=== PATIENT | female | born 1990 | race Caucasian/White ===

== ENCOUNTER 2016-10-12 14:33 | Emergency (ER) | payer BC, OTHER ==
[2016-10-12] MEDS ORDERED: ONDANSETRON 4 MG/2 ML VIAL IVP ONE (15:11)
[2016-10-12] MEDS ORDERED: KETOROLAC 30 MG/1 ML SDV IVP ONE (15:11)
[2016-10-12] MEDS ORDERED: NS 1,000 ML IV ONE (15:11)
[2016-10-12] MEDS ORDERED: HYOSCYAMINE SULFATE 0.125 MG TAB PO ONE ×2 (15:12→15:46)
[2016-10-12 15:16] LABS: % IMMATURE GRANULYOCYTES 0.3 % (0.0-1.1); ABSOLUTE IMMATURE GRANULOCYTES 0.03 10^3/uL (0.00-0.10); ADD DIFF? NO; ADD MORPH? NO; ADD SCAN? NO; ATYPICAL LYMPHOCYTE FLAG 60 (0-99); FRAGMENT RBC FLAG 0 (0-99); HEMATOCRIT 42.5 % (38.0-47.0); HEMOGLOBIN 14.7 g/dL (12.6-16.3); LEFT SHIFT FLG 60 (0-99); LIPEMIA HEMOLYSIS FLAG 90 (0-99); MEAN CELL HEMOGLOBIN 30.2 pg (27.9-34.1); MEAN CELL HEMOGLOBIN CONCENTR. 34.6 g/dL (32.4-36.7); MEAN CELL VOLUME 87.3 fL (81.5-99.8); MEAN PLATELET VOLUME 10.3 fL (8.7-11.7); PLATELET CLUMPS FLAG 10 (0-99); PLATELET COUNT 279 10^3/uL (150-400); RED BLOOD CELL COUNT 4.87 10^6/uL (4.18-5.33); RED CELL DISTRIBUTION WIDTH 12.6 % (11.5-15.2)
[2016-10-12 15:24] LABS: ALANINE AMINOTRANSFERASE 24 IU/L (9-52); ALKALINE PHOSPHATASE 66 IU/L (38-126); ANION GAP 17 mEq/L (8-16); ASPARTATE AMINOTRANSFERASE 20 IU/L (14-46); BILIRUBIN,TOTAL 0.4 mg/dL (0.1-1.4); CALCIUM 9.4 mg/dL (8.5-10.4); CARBON DIOXIDE 22 mEq/l (22-31); CHLORIDE 99 mEq/L (97-110); CREATININE 0.8 mg/dL (0.6-1.0); GLOMERULAR FILTRATION RATE > 60; GLUCOSE 109 mg/dL (70-100); POTASSIUM 3.3 mEq/L (3.5-5.2); SODIUM 138 mEq/L (134-144); TOTAL PROTEIN 7.3 g/dL (6.3-8.2)
--- NOTE | 2016-10-12 15:39 | UCPHY ---
H & P Patient Type: New Chief Complaint Nursing Narrative: nausea, abd pain upper, fever, 2 days Time Seen by Provider: 10/12/16 14:59 HPI/ROS: Patient complains of crampy generalized abdominal pain and diarrhea. Her symptoms started 2 days prior to arrival and she describes concurrent onset of periumbilical cramping that ranges from mild intensity to 7/10, is usually dull in nature but occasionally sharp and diarrhea that is described as loose and watery without to 15 episodes a day. She has nausea and anorexia as well but no vomiting. Her last meal was a piece chicken last night. She is to still tolerating some p.o. fluids today. She notes no exacerbating factors for her cramping discomfort. She did have partial relief from advanced trauma on antiemetic this morning-ODT the family had a home ROS: No high fevers. She does describe onset of low-grade fevers today. She also complains of generalized muscle cramping. No other constitutional symptoms. HEENT: No recent URI symptoms. She does have a bandlike headache of mild intensity currently 4/10 similar to prior headaches. This does not feel migraine this to her. Pulmonary: No cough cardiovascular: No heart with palpitations or lightheadedness. GI: No bloody stools. : No urinary symptoms. Last menstrual period is irregular due to IUD. 10 point ROS is otherwise negative. Source: Patient Exam Limitations: No limitations - Personal History LMP (Females 10-55): Over 28 Days Ago - Medical/Surgical History Hx Asthma: Yes Hx Chronic Respiratory Disease: No Hx Diabetes: No Hx Cardiac Disease: No Hx Renal Disease: No Hx Cirrhosis: No Hx Alcoholism: No Hx HIV/AIDS: No Hx Splenectomy or Spleen Trauma: No Other PMH: chronic migranes, tonsillectomy - Family History Significant Family History: No pertinent family hx - Social History Smoking Status: Never smoked Constitutional: Initial Vital Signs Temperature (C) 37.8 C 10/12/16 14:39 Heart Rate 91 10/12/16 14:39 Respiratory Rate 14 10/12/16 14:39 Blood Pressure 113/76 10/12/16 14:39 O2 Sat (%) 97 10/12/16 14:39 O2 Delivery Mode Room Air Allergies/Adverse Reactions: azithromycin [From Zithromax] Allergy (Verified 07/04/13 19:11) Home Medications: Medication Instructions Recorded Advair 07/04/13 Control 07/04/13 HYOSCYAMINE SULFATE [LEVSIN-SL] 0.125 - 0.25 mg SL Q6 PRN #20 10/12/16 tab.subl Ondansetron Odt [Zofran Odt] 4 - 8 mg PO Q4PRN PRN #4 tab 10/12/16 Medical Decision Making ED Course/Re-evaluation: IV normal saline bolus Zofran IV with resolution of nausea Toradol IV and Levsin sublingual with relief of abdominal cramping I counseled the patient regarding viral gastroenteritis which I think is the cause of her symptoms. we Ruled out with a negative HCG here. - Data Points Laboratory Results: Laboratory Results 10/12/16 14:55 10/12/16 14:55 10/12/16 10/12/16 10/12/16 16:00 14:55 14:55 WBC RBC Hgb Hct MCV MCH MCHC RDW Plt Count MPV Neut % (Auto) Lymph % (Auto) [place] % (Auto) Eos % (Auto) Baso % (Auto) Nucleat RBC Rel Count Absolute Neuts (auto) Absolute Lymphs (auto) Absolute Monos (auto) Absolute Eos (auto) Absolute Basos (auto) Absolute Nucleated RBC Immature Gran % Immature Gran # Sodium 138 mEq/L mEq/L (134-144) Potassium 3.3 mEq/L L mEq/L (3.5-5.2) Chloride 99 mEq/L mEq/L (97-110) Carbon Dioxide 22 mEq/l mEq/l (22-31) Anion Gap 17 mEq/L H mEq/L (8-16) BUN 4 mg/dL L mg/dL (7-23) Creatinine 0.8 mg/dL mg/dL (0.6-1.0) Estimated GFR > 60 Glucose 109 mg/dL H mg/dL (70-100) Calcium 9.4 mg/dL mg/dL (8.5-10.4) Total Bilirubin 0.4 mg/dL mg/dL (0.1-1.4) AST 20 IU/L IU/L (14-46) ALT 24 IU/L IU/L (9-52) Alkaline Phosphatase 66 IU/L IU/L (38-126) Total Protein 7.3 g/dL g/dL (6.3-8.2) Albumin 4.0 g/dL g/dL (3.5-5.0) Lipase 45.0 IU/L IU/L (23-300) Beta HCG, Qual NEGATIVE Urine Color YELLOW Urine Appearance CLEAR Urine pH 5.5 (5.0-7.5) Ur Specific [place] 1.010 (1.002-1.030) Urine Protein NEGATIVE (NEGATIVE) Urine Ketones NEGATIVE (NEGATIVE) Urine Blood NEGATIVE (NEGATIVE) Urine Nitrate NEGATIVE (NEGATIVE) Urine Bilirubin NEGATIVE (NEGATIVE) Urine Urobilinogen 0.2 EU EU (0.2-1.0) Ur Leukocyte Esterase NEGATIVE (NEGATIVE) Ur Culture Indicated? NOT INDICATED (NI) Urine Glucose NEGATIVE (NEGATIVE) 10/12/16 14:55 WBC 9.99 10^3/uL H 10^3/uL (3.80-9.50) RBC 4.87 10^6/uL 10^6/uL (4.18-5.33) Hgb 14.7 g/dL g/dL (12.6-16.3) Hct 42.5 % % (38.0-47.0) MCV 87.3 fL fL (81.5-99.8) MCH 30.2 pg pg (27.9-34.1) MCHC 34.6 g/dL g/dL (32.4-36.7) RDW 12.6 % % (11.5-15.2) Plt Count 279 10^3/uL 10^3/uL (150-400) MPV 10.3 fL fL (8.7-11.7) Neut % (Auto) 77.5 % H % (39.3-74.2) Lymph % (Auto) 14.3 % L % (15.0-45.0) [place]ane % (Auto) 7.3 % % (4.5-13.0) Eos % (Auto) 0.3 % L % (0.6-7.6) Baso % (Auto) 0.3 % % (0.3-1.7) Nucleat RBC Rel Count 0.0 % % (0.0-0.2) Absolute Neuts (auto) 7.74 10^3/uL H 10^3/uL (1.70-6.50) Absolute Lymphs (auto) 1.43 10^3/uL 10^3/uL (1.00-3.00) Absolute Monos (auto) 0.73 10^3/uL 10^3/uL (0.30-0.80) Absolute Eos (auto) 0.03 10^3/uL 10^3/uL (0.03-0.40) Absolute Basos (auto) 0.03 10^3/uL 10^3/uL (0.02-0.10) Absolute Nucleated RBC 0.00 10^3/uL 10^3/uL (0-0.01) Immature Gran % 0.3 % % (0.0-1.1) Immature Gran # 0.03 10^3/uL 10^3/uL (0.00-0.10) Sodium Potassium Chloride Carbon Dioxide Anion Gap BUN Creatinine Estimated GFR Glucose Calcium Total Bilirubin AST ALT Alkaline Phosphatase Total Protein Albumin Lipase Beta HCG, Qual Urine Color Urine Appearance Urine pH Ur Specific [place] Urine Protein Urine Ketones Urine Blood Urine Nitrate Urine Bilirubin Urine Urobilinogen Ur Leukocyte Esterase Ur Culture Indicated? Urine Glucose Medications Given: Discontinued Medications Acetaminophen (Tylenol) 975 mg PO EDNOW ONE Stop: 10/12/16 15:47 Last Admin: 10/12/16 15:50 Dose: 975 mg Hyoscyamine Sulfate (Levsin, Hyomax-Sl) 0.125 mg PO EDNOW ONE Stop: 10/12/16 15:13 Last Admin: 10/12/16 15:20 Dose: 0.125 mg Hyoscyamine Sulfate (Levsin, Hyomax-Sl) 0.125 mg PO EDNOW ONE Stop: 10/12/16 15:47 Last Admin: 10/12/16 15:50 Dose: 0.125 mg Sodium Chloride (Ns) 1,000 mls @ 0 mls/hr IV ONCE ONE PRN Reason: Wide Open Stop: 10/12/16 15:12 Last Admin: 10/12/16 15:20 Dose: 1,000 mls Ketorolac Tromethamine (Toradol) 15 mg IVP EDNOW ONE Stop: 10/12/16 15:12 Last Admin: 10/12/16 15:20 Dose: 15 mg Ketorolac Tromethamine (Toradol) 15 mg IVP EDNOW ONE Stop: 10/12/16 15:47 Last Admin: 10/12/16 15:50 Dose: 15 mg Ondansetron HCl (Zofran) 4 mg IVP EDNOW ONE Stop: 10/12/16 15:12 Last Admin: 10/12/16 15:20 Dose: 4 mg Departure - Departure Disposition: Home, Routine, Self-Care Clinical Impression: Viral gastroenteritis, Dehydration Headache Qualifiers: Headache type: tension-type Headache chronicity pattern: acute headache Intractability: not intractable Qualified Code(s): G44.209 - Tension-type headache, unspecified, not intractable Condition: Good Instructions: Tension Headache (ED), Gastroenteritis (ED) Additional Instructions: Diagnoses: 1. Viral gastroenteritis 2. Dehydration 3. Headache Plan: Drink plenty fluids Light diet to feel improved Zofran for nausea if needed Imodium for diarrhea if needed Levsin for cramping if needed. Tylenol for discomfort in addition if needed. Your symptoms should improve over the next 1-3 days. Return for any significant worsening despite the treatment plan Referrals: Zac Castillo [Primary Care Provider] - As per Instructions Stand Alone Forms: Work Excuse Prescriptions: HYOSCYAMINE SULFATE [LEVSIN-SL] 0.125 - 0.25 mg SL Q6 PRN #20 tab.subl PRN Reason: abd. cramping Ondansetron Odt [Zofran Odt] 4 - 8 mg PO Q4PRN PRN #4 tab PRN Reason: Vomiting - PQRS PQRS Measurement: NA
[2016-10-12] MEDS ORDERED: KETOROLAC 15 MG/1 ML SDV IVP ONE (15:46)
[2016-10-12] MEDS ORDERED: ACETAMINOPHEN 325 MG TAB PO ONE (15:46)
[2016-10-12 16:06] LABS: COLOR YELLOW; LEUKOCYTE ESTERASE,URINE NEGATIVE (NEGATIVE); NITRITE,URINE NEGATIVE (NEGATIVE); PH,URINE 5.5 (5.0-7.5)
[2016-10-12 16:37] VITALS: BP 101/72; PULSE 77; RESP 16; TEMP 99.3; O2SAT 95
== END 2016-10-12 16:25 | disposition home or self-care (01) ==
LOC: CED 14:33
DX: A08.4 Viral intestinal infection, unspecified (principal); E86.0 Dehydration; G44.209 Tension-type headache, unspecified, not intractable
CPT/HCPCS: 80053-PO; 81003-PO; 83690-PO; 84703-PO; 85025-PO; 96361-PO; 96374-PO; 96375-PO; 99205-PO; G0463-PO; J1885; J2405

== ENCOUNTER 2016-10-14 11:16 | Emergency (ER) | payer OTHER ==
[2016-10-14] MEDS ORDERED: NS 1,000 ML IV ONE (11:33)
[2016-10-14] MEDS ORDERED: ONDANSETRON 4 MG/2 ML VIAL IVP ONE ×2 (11:34→15:07)
[2016-10-14 11:44] LABS: % IMMATURE GRANULYOCYTES 0.2 % (0.0-1.1); ABSOLUTE IMMATURE GRANULOCYTES 0.02 10^3/uL (0.00-0.10); ADD DIFF? NO; ADD MORPH? NO; ADD SCAN? YES; FRAGMENT RBC FLAG 0 (0-99); HEMATOCRIT 43.5 % (38.0-47.0); HEMOGLOBIN 14.7 g/dL (12.6-16.3); LEFT SHIFT FLG 10 (0-99); LIPEMIA HEMOLYSIS FLAG 90 (0-99); MEAN CELL HEMOGLOBIN 29.6 pg (27.9-34.1); MEAN CELL HEMOGLOBIN CONCENTR. 33.8 g/dL (32.4-36.7); MEAN CELL VOLUME 87.5 fL (81.5-99.8); PLATELET CLUMPS FLAG 0 (0-99); PLATELET COUNT 326 10^3/uL (150-400); RED BLOOD CELL COUNT 4.97 10^6/uL (4.18-5.33); RED CELL DISTRIBUTION WIDTH 12.4 % (11.5-15.2)
[2016-10-14 11:47] LABS: ATYPICAL LYMPHOCYTE FLAG 130 (0-99)
[2016-10-14 11:50] LABS: COLOR YELLOW; LEUKOCYTE ESTERASE,URINE NEGATIVE (NEGATIVE); NITRITE,URINE NEGATIVE (NEGATIVE)
[2016-10-14 11:59] LABS: ANION GAP 18 mEq/L (8-16); CALCIUM 9.5 mg/dL (8.5-10.4); CARBON DIOXIDE 23 mEq/l (22-31); CHLORIDE 102 mEq/L (97-110); CREATININE 0.7 mg/dL (0.6-1.0); GLOMERULAR FILTRATION RATE > 60; GLUCOSE 87 mg/dL (70-100); SODIUM 143 mEq/L (134-144)
[2016-10-14 12:07] LABS: SCAN NEGATIVE
[2016-10-14] MEDS ORDERED: fentaNYL 100 MCG/2 ML INJ IVP ONE (13:14)
[2016-10-14 13:27] LABS: ALBUMIN 3.9 g/dL (3.5-5.0); BILIRUBIN,TOTAL 0.3 mg/dL (0.1-1.4); BILIRUBIN-CONJUGATED 0.2 mg/dL (0.0-0.5); BILIRUBIN-UNCONJUGATED 0.1 mg/dL (0.0-1.1); TOTAL PROTEIN 7.1 g/dL (6.3-8.2)
[2016-10-14] MEDS ORDERED: IOPAMIDOL (ISOVUE-300) 100 ML BTL IV ONE (13:32)
[2016-10-14] MEDS ORDERED: HYDROmorphONE/DILAUDID 1 MG/ML SYR IVP ONE (15:07)
--- NOTE | 2016-10-14 15:12 | UCPHY ---
H & P Patient Type: Established Chief Complaint Nursing Narrative: here saturday for N/V/D/Abd pain- DX with gastritis- not bettter-meds given here not helping Time Seen by Provider: 10/14/16 12:56 HPI/ROS: CHIEF COMPLAINT: Ongoing pain and diarrhea HISTORY OF PRESENT ILLNESS: 26-year-old female presents with ongoing abdominal pain and diarrhea. Patient developed diarrhea 5 days ago and was seen in the emergency department 2 days ago. At that time she had generalized abdominal cramping and diarrhea associated with some nausea. Her evaluation has been reassuring when she was discharged with Zofran, and Bentyl, and Imodium. She reports that she initially felt better, however this morning again has headache , ongoing frequent bouts of diarrhea, and abdominal pain. No fever, no blood in the diarrhea. No vomiting. No recent travel. No fever, chills, chest pain, shortness of breath, palpitations, urinary complaints, or lightheadedness. REVIEW OF SYSTEMS: Aside from elements discussed in the HPI, a comprehensive 10-point review of systems was reviewed and is negative. PAST MEDICAL HISTORY: Ovarian cysts. SOCIAL HISTORY: Daily alcohol use, frequent marijuana use. VITAL SIGNS Reviewed by me. GENERAL: Well-developed, well-nourished, resting comfortably in no respiratory distress. HEENT: Atraumatic. Eyes: No icterus, no injection. Mouth: moist mucous membranes. No erythema or lesions. Neck: supple with no adenopathy. LUNGS: Clear to auscultation bilaterally, no wheezes, rhonchi or rales. CARDIAC: Regular rate and rhythm, no rubs, murmurs or gallops. ABDOMEN: Soft, mild diffuse tenderness, especially in the left mid and lower quadrant. No guarding or rebound. Nondistended, hyperactive bowel sounds normal. BACK: No CVA tenderness. EXTREMITIES: No trauma. No edema. Range of motion is normal throughout. NEURO: Alert and oriented, grossly nonfocal. SKIN: Warm and dry, no rash. PSYCHIATRIC: Normal mentation, no agitation. - Personal History LMP (Females 10-55): IUD In Place Current Tetanus Diphtheria and Acellular Pertussis (TDAP): Yes - Medical/Surgical History Hx Asthma: Yes Hx Chronic Respiratory Disease: No Hx Diabetes: No Hx Cardiac Disease: No Hx Renal Disease: No Hx Cirrhosis: No Hx Alcoholism: No Hx HIV/AIDS: No Hx Splenectomy or Spleen Trauma: No Other PMH: chronic migranes, tonsillectomy - Family History Significant Family History: No pertinent family hx (No history of ischemic colitis or Crohn's disease) - Social History Smoking Status: Never smoked Constitutional: Initial Vital Signs Temperature (C) 36.6 C 10/14/16 11:23 Heart Rate 63 10/14/16 11:23 Respiratory Rate 18 10/14/16 11:23 Blood Pressure 123/75 H 10/14/16 11:23 O2 Sat (%) 97 10/14/16 11:23 O2 Delivery Mode Room Air Allergies/Adverse Reactions: azithromycin [From Zithromax] Allergy (Verified 07/04/13 19:11) Home Medications: Medication Instructions Recorded Advair 07/04/13 Control 07/04/13 HYOSCYAMINE SULFATE [LEVSIN-SL] 0.125 - 0.25 mg SL Q6 PRN #20 10/12/16 tab.subl Ondansetron Odt [Zofran Odt] 4 - 8 mg PO Q4PRN PRN #4 tab 10/12/16 Ciprofloxacin [Cipro] 500 mg PO BID #6 tab 10/14/16 Hydrocodone/APAP 5/325 [[place] 1 tab PO Q6H PRN #10 tab 10/14/16 5/325 (RX)] Ondansetron Odt [Zofran Odt 4 mg 4 mg PO Q6 PRN #10 tab 10/14/16 (RX)] Medical Decision Making - Diagnostics Imaging Results: Imaging Impressions Abdomen CT 10/14/16 13:14 Impression: 1. Mild diffuse thickening and enhancement of the marti of large bowel from the rectum to the cecum. This can be seen with colitis. 2. No CT evidence of appendicitis, abscess or bowel obstruction. Findings discussed with Mara Bruno MD at 14:17 hour, 10/14/2016. ED Course/Re-evaluation: 26-year-old female here for her 2nd visit primary complaint of diarrhea. She took 1 Imodium tablet yesterday with minimal relief. IV was established in the patient had blood drawn as well as stool and stool cultures ordered. CT scan was ordered to further evaluate her abdominal discomfort. This was consistent with colitis without any signs of appendicitis, diverticulitis, bowel obstruction, or intra-abdominal abscess. Following her IV hydration the patient reports feeling better. She was able to tolerate p.o. fluids and crackers without recurrent diarrhea. After repeat examinations and reassessments the patient feels comfortable being discharged home. We will place her on ciprofloxacin for impaired therapy given the fact that she is having greater than 6 stools daily for the last 5 days. She was also given Zofran for nausea as well as hydrocodone for abdominal discomfort. C difficile is pending at the time of this dictation. Patient will call for those results. Differential Diagnosis: Differential diagnosis for the patient's diarrhea was considered including but not limited to gastroenteritis, colitis, diverticulitis, bacterial dysentery, viral diarrhea, medication effect, and malabsorption syndrome. - Data Points Laboratory Results: Laboratory Results 10/14/16 11:40 10/14/16 11:40 10/14/16 10/14/16 10/14/16 13:33 13:18 11:40 WBC RBC Hgb Hct MCV MCH MCHC RDW Plt Count MPV Neut % (Auto) Lymph % (Auto) [place] % (Auto) Eos % (Auto) Baso % (Auto) Nucleat RBC Rel Count Absolute Neuts (auto) Absolute Lymphs (auto) Absolute Monos (auto) Absolute Eos (auto) Absolute Basos (auto) Absolute Nucleated RBC Immature Gran % Immature Gran # Sodium Potassium Chloride Carbon Dioxide Anion Gap BUN Creatinine Estimated GFR Glucose Calcium Total Bilirubin 0.3 mg/dL mg/dL (0.1-1.4) Conjugated Bilirubin 0.2 mg/dL mg/dL (0.0-0.5) Unconjugated Bilirubin 0.1 mg/dL mg/dL (0.0-1.1) AST 20 IU/L IU/L (14-46) ALT 24 IU/L IU/L (9-52) Alkaline Phosphatase 62 IU/L IU/L (38-126) Total Protein 7.1 g/dL g/dL (6.3-8.2) Albumin 3.9 g/dL g/dL (3.5-5.0) Lipase 71.0 IU/L IU/L (23-300) Urine Color YELLOW Urine Appearance HAZY Urine pH 6.0 (5.0-7.5) Ur Specific [place] 1.025 (1.002-1.030) Urine Protein NEGATIVE (NEGATIVE) Urine Ketones NEGATIVE (NEGATIVE) Urine Blood NEGATIVE (NEGATIVE) Urine Nitrate NEGATIVE (NEGATIVE) Urine Bilirubin NEGATIVE (NEGATIVE) Urine Urobilinogen 0.2 EU EU (0.2-1.0) Ur Leukocyte Esterase NEGATIVE (NEGATIVE) Ur Culture Indicated? NOT INDICATED (NI) Urine Glucose NEGATIVE (NEGATIVE) Stool Concentration Pending Stool Occult Bld Scrn NEGATIVE (NEGATIVE) Stool Ova & Parasites Pending Parasite Trichrome Pending C. difficile Tox (PCR) Pending Direct Microscop Exam Pending 10/14/16 10/14/16 11:40 11:40 WBC 8.25 10^3/uL 10^3/uL (3.80-9.50) RBC 4.97 10^6/uL 10^6/uL (4.18-5.33) Hgb 14.7 g/dL g/dL (12.6-16.3) Hct 43.5 % % (38.0-47.0) MCV 87.5 fL fL (81.5-99.8) MCH 29.6 pg pg (27.9-34.1) MCHC 33.8 g/dL g/dL (32.4-36.7) RDW 12.4 % % (11.5-15.2) Plt Count 326 10^3/uL 10^3/uL (150-400) MPV 10.0 fL fL (8.7-11.7) Neut % (Auto) 61.0 % % (39.3-74.2) Lymph % (Auto) 26.9 % % (15.0-45.0) [place] % (Auto) 8.6 % % (4.5-13.0) Eos % (Auto) 2.9 % % (0.6-7.6) Baso % (Auto) 0.4 % % (0.3-1.7) Nucleat RBC Rel Count 0.0 % % (0.0-0.2) Absolute Neuts (auto) 5.03 10^3/uL 10^3/uL (1.70-6.50) Absolute Lymphs (auto) 2.22 10^3/uL 10^3/uL (1.00-3.00) Absolute Monos (auto) 0.71 10^3/uL 10^3/uL (0.30-0.80) Absolute Eos (auto) 0.24 10^3/uL 10^3/uL (0.03-0.40) Absolute Basos (auto) 0.03 10^3/uL 10^3/uL (0.02-0.10) Absolute Nucleated RBC 0.00 10^3/uL 10^3/uL (0-0.01) Immature Gran % 0.2 % % (0.0-1.1) Immature Gran # 0.02 10^3/uL 10^3/uL (0.00-0.10) Sodium 143 mEq/L mEq/L (134-144) Potassium 4.0 mEq/L mEq/L (3.5-5.2) Chloride 102 mEq/L mEq/L (97-110) Carbon Dioxide 23 mEq/l mEq/l (22-31) Anion Gap 18 mEq/L H mEq/L (8-16) BUN 5 mg/dL L mg/dL (7-23) Creatinine 0.7 mg/dL mg/dL (0.6-1.0) Estimated GFR > 60 Glucose 87 mg/dL mg/dL (70-100) Calcium 9.5 mg/dL mg/dL (8.5-10.4) Total Bilirubin Conjugated Bilirubin Unconjugated Bilirubin AST ALT Alkaline Phosphatase Total Protein Albumin Lipase Urine Color Urine Appearance Urine pH Ur Specific [place] Urine Protein Urine Ketones Urine Blood Urine Nitrate Urine Bilirubin Urine Urobilinogen Ur Leukocyte Esterase Ur Culture Indicated? Urine Glucose Stool Concentration Stool Occult Bld Scrn Stool Ova & Parasites Parasite Trichrome C. difficile Tox (PCR) Direct Microscop Exam Medications Given: Discontinued Medications Hydrocodone Bitart/Acetaminophen ([place] 5/325mg Prepack#6) 1 btl TAKEHOME EDNOW ONE Stop: 10/14/16 15:20 Last Admin: 10/14/16 15:34 Dose: 1 btl Ciprofloxacin (Cipro 500mg Prepack#2) 1 btl TAKEHOME EDNOW ONE Stop: 10/14/16 15:20 Last Admin: 10/14/16 15:33 Dose: 1 btl Fentanyl (Sublimaze) 75 mcg IVP EDNOW ONE Stop: 10/14/16 13:15 Last Admin: 10/14/16 13:20 Dose: 75 mcg Hydromorphone HCl (Dilaudid) 0.5 mg IVP EDNOW ONE Stop: 10/14/16 15:08 Last Admin: 10/14/16 15:17 Dose: 0.5 mg Sodium Chloride (Ns) 1,000 mls @ 0 mls/hr IV ONCE ONE PRN Reason: Wide Open Stop: 10/14/16 11:34 Last Admin: 10/14/16 11:35 Dose: 1,000 mls Ondansetron HCl (Zofran) 4 mg IVP EDNOW ONE Stop: 10/14/16 11:35 Last Admin: 10/14/16 11:35 Dose: 4 mg Ondansetron HCl (Zofran) 4 mg IVP EDNOW ONE Stop: 10/14/16 15:08 Last Admin: 10/14/16 15:17 Dose: 4 mg Ondansetron HCl (Zofran Odt 4 Mg Prepack#2) 1 btl TAKEHOME EDNOW ONE Stop: 10/14/16 15:20 Last Admin: 10/14/16 15:34 Dose: 1 btl Departure - Departure Disposition: Home, Routine, Self-Care Clinical Impression: Colitis Diarrhea Qualifiers: Diarrhea type: unspecified type Qualified Code(s): R19.7 - Diarrhea, unspecified Condition: Good Instructions: Ciprofloxacin (By mouth), Loperamide (By mouth), Hydrocodone/ Acetaminophen (By mouth), Ondansetron (By mouth), Acute Diarrhea (ED), Colitis ( ED) Additional Instructions: Please take antibiotic as directed. Ciprofloxacin 500 mg by mouth 2 times a day. For stool cultures will be available to starting tomorrow. Please call for these results. If the Clostridium difficile is positive you will need to take a different antibiotic. For your ongoing diarrhea, please take Imodium as directed. For ongoing nausea, continue to use Zofran. For ongoing abdominal pain, you been given a prescription of hydrocodone. I suggested you start with a bland diet and advance as tolerated. This means start with clear liquids such as water, Gatorade, juice, flat non- caffeinated soda. If you tolerate clear liquids, then you may add bland foods such as bananas, rice, or toast. If you do not have any worsening of your symptoms, you may begin to resume a regular diet. Referrals: SIMA Whitehead,. [Primary Care Provider] - As per Instructions Prescriptions: Ciprofloxacin [Cipro] 500 mg PO BID #6 tab Hydrocodone/APAP 5/325 [[place] 5/325 (RX)] 1 tab PO Q6H PRN #10 tab PRN Reason: Pain Ondansetron Odt [Zofran Odt 4 mg (RX)] 4 mg PO Q6 PRN #10 tab PRN Reason: Nausea - PQRS PQRS Measurement: Not applicable
[2016-10-14] MEDS ORDERED: CIPROFLOXACIN 500MG PREPACK#2 BTL TAKEHOME ONE (15:19)
[2016-10-14] MEDS ORDERED: ONDANSETRON 4MG PREPACK#2 BTL TAKEHOME ONE (15:19)
[2016-10-14] MEDS ORDERED: HYDROCOD/APAP 5/325 PREPACK#6 BTL TAKEHOME ONE (15:19)
[2016-10-14 15:51] VITALS: BP 115/79; PULSE 52; RESP 15; TEMP 98.6; O2SAT 96
== END 2016-10-14 15:45 | disposition home or self-care (01) ==
LOC: CED 11:16
DX: K52.9 Noninfective gastroenteritis and colitis, unspecified (principal)
CPT/HCPCS: 74177-PO; 80048-PO; 80076-PO; 81003-PO; 82270-PO; 83690-PO; 85025-PO; 96361-PO; 96374-PO; 96375-PO; 96376-PO; 99215-PO; G0463-PO; J1170; J2405; J3010; Q9967